=== PATIENT | male | born 1980 | race African-American/Black ===

== ENCOUNTER 2021-05-07 01:12 | Emergency (ER) | payer MEDICAID ==
[~2021-05-07] VITALS: Ht 182.9 cm; Wt 64.0 kg
[2021-05-07 01:24] VITALS: BP 107/70
[2021-05-07] MEDS ORDERED: HYDROCODONE/ACETAMINOPHEN 5/325MG TABLET PO STA (01:47)
[2021-05-07] MEDS ORDERED: KETOROLAC 60MG/2ML VIAL IM STA (01:47)
[2021-05-07] MEDS ORDERED: IBUP-2028 MT (03:38)
[2021-05-07] MEDS ORDERED: HYDR-4001 MT (03:38)
== END 2021-05-07 04:08 | disposition home or self-care (01) ==
LOC: ER 01:47
DX: R07.89 Other chest pain (principal); V43.62XA Car passenger injured in collision with other type car in traffic accident, initial encounter; Y93.89 Activity, other specified; Y92.410 Unspecified street and highway as the place of occurrence of the external cause; Z91.018 Allergy to other foods; Z98.890 Other specified postprocedural states
CPT/HCPCS: 71045; 93005; 96372; 99283; J1885